=== PATIENT | male | born 1990 | race African-American/Black ===

== ENCOUNTER 2021-01-09 13:46 | Emergency (ER) | payer OTHER, MEDICAID ==
[~2021-01-09] VITALS: Ht 182.9 cm; Wt 70.0 kg
[2021-01-09] MEDS ORDERED: SODIUM CHLORIDE 0.9% 1,000 ML IV ONE ×2 (15:30→16:45)
[2021-01-09 15:32] LABS: HEMATOCRIT. 41.2 % (42.0-52.0); HEMOGLOBIN. 14.3 g/dL (14.0-18.0); MEAN CORPUSCULAR HEMOGLOBIN 31.5 pg (28.0-32.0); MEAN CORPUSCULAR VOLUME 90.5 fL (80.0-94.0); MEAN PLATELET VOLUME 8.6 fl (7.4-10.4); PLATELET 166 x1000/uL (130-400); RED BLOOD CELL COUNT 4.55 mill/uL (4.7-6.1); RED CELL DISTRIBUTION WIDTH 13.4 % (11.6-14.6)
[2021-01-09 15:36] LABS: CHLORIDE 118 mEq/L (98-107)
[2021-01-09 15:41] LABS: ETHANOL BLOOD < 10 mg/dL
[2021-01-09 16:12] LABS: CREATINE KINASE 1772 IU/L (39-308)
[2021-01-09 17:09] LABS: PLATELET ESTIMATE NORMAL
[2021-01-09 18:00] VITALS: BP 128/83
[2021-01-09 20:32] LABS: CHLORIDE 117 mEq/L (98-107)
[2021-01-09 20:36] LABS: CLARITY URINE CLEAR (CLEAR); COLOR URINE YELLOW (YELLOW); KETONES URINE TRACE (NEGATIVE); LEUKOCYTE ESTERASE URINE NEGATIVE (NEGATIVE); NITRITE URINE NEGATIVE (NEGATIVE); OCCULT BLOOD URINE 3+ (NEGATIVE); PH URINE 5.5 (4.5-8.0); PROTEIN URINE 2+ (NEGATIVE); SPECIFIC GRAVITY URINE 1.012 (1.005-1.030); UROBILINOGEN URINE 0.2 E.U./dL (0.2-1.0)
[2021-01-09 20:50] LABS: *AMPHETAMINES SCREEN URINE PRESUMTIVE POSITIVE (NEGATIVE); *BARBITURATES SCREEN URINE NEGATIVE (NEGATIVE); *BENZODIAZEPINES SCREEN URINE PRESUMTIVE POSITIVE (NEGATIVE); *COCAINE SCREEN URINE NEGATIVE (NEGATIVE); METHADONE URINE SCREEN NEGATIVE (NEGATIVE); OPIATES URINE SCREEN NEGATIVE (NEGATIVE)
[2021-01-09 20:51] LABS: CANNABINOID URINE SCREEN NEGATIVE (NEGATIVE); PHENCYCLIDINE URINE SCREEN PRESUMTIVE POSITIVE (NEGATIVE)
[2021-01-09 21:44] LABS: CREATINE KINASE 34707 IU/L (39-308)
== END 2021-01-09 20:10 | disposition home or self-care (01) ==
LOC: ER 13:46 → EDBD 13:46 → ER 20:10
DX: T43.621A Poisoning by amphetamines, accidental (unintentional), initial encounter (principal); T40.991A Poisoning by other psychodysleptics [hallucinogens], accidental (unintentional), initial encounter; F91.8 Other conduct disorders; M62.82 Rhabdomyolysis; F12.10 Cannabis abuse, uncomplicated; F17.210 Nicotine dependence, cigarettes, uncomplicated; Z71.6 Tobacco abuse counseling; Y92.018 Other place in single-family (private) house as the place of occurrence of the external cause
CPT/HCPCS: 36415; 70450; 71045; 80048; 80053; 80305; 80307; 80320; 80329; 81003; 82550; 82962; 85025; 93005; 99285; 99406; J7030; Z7610; G0480